=== PATIENT | male | born 1960 | race Caucasian/White ===

== ENCOUNTER 2024-04-04 02:18 | Inpatient (IN) | payer MEDICARE, MEDICAID ==
[2024-04-04] MEDS ORDERED: Guaifenesin DM 100-10/5 ML UDCUP PO PRN (02:41)
[2024-04-04] MEDS ORDERED: Ondansetron PF 4 MG/2 ML Vial IVP PRN (02:41)
[2024-04-04] MEDS ORDERED: Senokot S 8.6-50 MG TAB PO PRN (02:41)
[2024-04-04] MEDS ORDERED: Calcium Carbonate 500 MG ChewTAB PO PRN (02:41)
[2024-04-04] MEDS ORDERED: Ipratropium/Albuterol 3 ML NEB NEB PRN (02:43)
[2024-04-04] MEDS: Ipratropium/Albuterol 3 ML NEB NEB SCH (03:35)
[2024-04-04 03:51] LABS: Actual Bicarbonate (HCO3v) 30.1 mEq/L (22-28); Analyzer IN Cardio CS ER; Base Excess 3.4 mEq/L (-2 - +2); Chloride (VBG) 99 mmol/L (98-106); Critical Notified By: CP.MC; Hematocrit-VBG 42 % (42.0-52.0); Hemoglobin (Hb) 14.3 g/dL (12.6-17.4); Potassium (VBG) 4.19 mmol/L (3.70-5.30); Puncture Site Other Site; RapidComm Collect By LAB; Sodium 137 mmol/L (133-146); pH (venous) 7.366 (7.32-7.43)
[2024-04-04] MEDS: Furosemide 40 MG (4 mL) VIAL SLOW IVP SCH (04:21)
[2024-04-04] MEDS: methylPREDNISolone Sod Succ 40 MG VIAL IVP SCH (04:22)
[2024-04-04 04:29] LABS: Anion Gap 13 mmol/L (10-20); BUN (Urea Nitrogen) 15 mg/dL (8.4-25.7); Calc. Creatinine Clearance 0 mL/min (70-130); Calcium 8.4 mg/dL (7.8-10.44); Carbon Dioxide 31 mmol/L (23-31); Chloride 99 mmol/L (98-107); Estimated GFR 87; Glucose 86 mg/dL (80-115); Potassium 4.2 mmol/L (3.5-5.1); Sodium 139 mmol/L (136-145)
[2024-04-04 05:13] LABS: Thyroid Stimulating Hormone 6.8189 uIU/mL (0.35-4.94)
[2024-04-04] MEDS: diphenhydrAMINE 25 MG CAP PO SCH (06:06)
[2024-04-04] MEDS: Levothyroxine Sodium 112 MCG TAB PO SCH (06:11)
[2024-04-04 06:28] VITALS: BMI 36.6
[2024-04-04 07:11] LABS: Influenza A by NAA Not Detected (NotDetected); Influenza B by NAA Not Detected (NotDetected); RSV by NAA Not Detected (NotDetected); SARS-CoV-2 NAA Rapid Test Not Detected (NotDetected)
[2024-04-04] MEDS: Famotidine 20 MG TAB PO SCH (08:45)
[2024-04-04] MEDS: busPIRone HCl 5 MG TAB PO SCH (08:45)
[2024-04-04] MEDS: Losartan 25 MG TAB PO SCH (08:45)
[2024-04-04] MEDS: cefTRIAXone\\ROCEPHIN 2 GM in Sodium Chloride 0.9% 100 ML IVPB SCH (08:50)
[2024-04-04] MEDS: Enoxaparin 40 MG (0.4 mL) SYRINGE SC SCH (08:52)
[2024-04-04 10:58] LABS: Legionella Urinary Ag Negative (Negative); Strep pneumo Urine Ag NEGATIVE (NEGATIVE)
[2024-04-04] MEDS: Azithromycin 500 MG in Sodium Chloride 0.9% 250 ML 250 ML IVPB SCH (18:35)
[2024-04-04] MEDS: hydrOXYzine 25 MG TAB PO PRN (18:36)
[2024-04-04] MEDS: Rosuvastatin 20 MG TAB PO SCH (20:40)
[2024-04-04] MEDS: Mirtazapine 15 MG TAB PO SCH (20:41)
[2024-04-04] MEDS: Escitalopram Oxalate 10 mg Tablet PO SCH (20:41)
[2024-04-05 13:00] LABS: Free T4 (Free Thyroxine) 0.82 ng/dL (0.70-1.48)
[2024-04-05 14:35] LABS: ANA Symphony (Qualitative) POSITIVE (Negative); ANA Symphony (Quantitative) 4.1 Ratio (< 0.7 Negative); CENP IgG Antibody 1.1 EliAU/mL (<7 Negative); RNP70 IgG Antibody 2.2 EliAU/mL (<7 Negative); SSB/La IgG Antibody 2.6 EliAU/mL (<7 Negative); Smith D IgG Antibody 1.2 EliAU/mL (<7 Negative)
[2024-04-06] MEDS: Levothyroxine Sodium 125 MCG TAB PO SCH (04:59)
[2024-04-06 05:10] LABS: Anion Gap 12 mmol/L (10-20); BUN (Urea Nitrogen) 19 mg/dL (8.4-25.7); Calc. Creatinine Clearance 129 mL/min (70-130); Carbon Dioxide 34 mmol/L (23-31); Chloride 98 mmol/L (98-107); Estimated GFR 96; Glucose 86 mg/dL (80-115); Potassium 4.3 mmol/L (3.5-5.1); Sodium 140 mmol/L (136-145)
[2024-04-06 05:11] LABS: #Basophils 0.02 10x3/uL (0.0-0.2); #Eosinphils 0.03 10x3/uL (0.0-0.5); #Monocytes 0.56 10x3/uL (0.0-1.1); #Neutrophils 5.94 10x3/uL (1.5-8.4); %Basophils 0.2 % (0.0-2.0); %Eosinophils 0.4 % (0.0-6.0); %Lymphocytes 18.8 % (18.0-47.0); %Monocytes 6.9 % (0.0-10.0); %Neutrophils 73.2 % (40.0-75.0); Hemoglobin 13.6 g/dL (13.5-17.5); Mean Corpuscular HGB CONC 33.2 g/dL (32.0-36.0); Mean Corpuscular Hemoglobin 33.7 pg (27.0-33.0); Mean Corpuscular Volume 101.7 fl (81.2-95.1); Mean Platelet Volume 9.1 fl (7.4-10.4); Platelet Count 314 10x3/uL (150-450); RBC Distribution Width 16.7 % (11.5-14.5); Red Blood Cell (RBC) Count 4.03 10x6/uL (4.32-5.72); White Blood Cell (WBC) Count 8.1 10x3/uL (3.5-10.5)
[2024-04-06] MEDS ORDERED: Levothyroxine Sodium 112 MCG TAB PO SCH (06:00)
[2024-04-06] MEDS ORDERED: predniSONE 20 MG TAB PO SCH (08:00)
[2024-04-06] MEDS: Acetaminophen 325 MG TAB PO PRN (20:41)
[2024-04-06 22:14] LABS: Mycoplasma pneumoniae IgG AB 459 U/mL (0-99); Mycoplasma pneumoniae IgM AB Less than 770 U/mL (0-769)
[2024-04-07 03:57] LABS: #Basophils 0.03 10x3/uL (0.0-0.2); #Eosinphils 0.15 10x3/uL (0.0-0.5); #Monocytes 0.57 10x3/uL (0.0-1.1); #Neutrophils 4.16 10x3/uL (1.5-8.4); %Basophils 0.5 % (0.0-2.0); %Eosinophils 2.3 % (0.0-6.0); %Lymphocytes 24.2 % (18.0-47.0); %Monocytes 8.7 % (0.0-10.0); %Neutrophils 63.8 % (40.0-75.0); Hematocrit 41.4 % (38.8-50.0); Hemoglobin 13.7 g/dL (13.5-17.5); Mean Corpuscular HGB CONC 33.1 g/dL (32.0-36.0); Mean Corpuscular Hemoglobin 33.7 pg (27.0-33.0); Mean Corpuscular Volume 101.7 fl (81.2-95.1); Mean Platelet Volume 8.8 fl (7.4-10.4); Platelet Count 304 10x3/uL (150-450); RBC Distribution Width 16.4 % (11.5-14.5); Red Blood Cell (RBC) Count 4.07 10x6/uL (4.32-5.72); White Blood Cell (WBC) Count 6.5 10x3/uL (3.5-10.5)
[2024-04-07 04:11] LABS: Anion Gap 10 mmol/L (10-20); BUN (Urea Nitrogen) 19 mg/dL (8.4-25.7); Calc. Creatinine Clearance 120 mL/min (70-130); Calcium 9.1 mg/dL (7.8-10.44); Carbon Dioxide 35 mmol/L (23-31); Chloride 97 mmol/L (98-107); Estimated GFR 92; Glucose 87 mg/dL (80-115); Potassium 4.4 mmol/L (3.5-5.1); Sodium 138 mmol/L (136-145)
[2024-04-08 03:26] LABS: #Basophils 0.02 10x3/uL (0.0-0.2); #Eosinphils 0.18 10x3/uL (0.0-0.5); #Monocytes 0.62 10x3/uL (0.0-1.1); #Neutrophils 3.53 10x3/uL (1.5-8.4); %Basophils 0.3 % (0.0-2.0); %Lymphocytes 26.3 % (18.0-47.0); %Monocytes 10.4 % (0.0-10.0); %Neutrophils 59.5 % (40.0-75.0); Hematocrit 43.2 % (38.8-50.0); Hemoglobin 14.3 g/dL (13.5-17.5); Mean Corpuscular HGB CONC 33.1 g/dL (32.0-36.0); Mean Corpuscular Hemoglobin 33.2 pg (27.0-33.0); Mean Corpuscular Volume 100.2 fl (81.2-95.1); Mean Platelet Volume 8.7 fl (7.4-10.4); Platelet Count 316 10x3/uL (150-450); RBC Distribution Width 16.3 % (11.5-14.5); Red Blood Cell (RBC) Count 4.31 10x6/uL (4.32-5.72); White Blood Cell (WBC) Count 5.9 10x3/uL (3.5-10.5)
[2024-04-08 03:50] LABS: Anion Gap 12 mmol/L (10-20); BUN (Urea Nitrogen) 17 mg/dL (8.4-25.7); Calc. Creatinine Clearance 121 mL/min (70-130); Carbon Dioxide 32 mmol/L (23-31); Chloride 96 mmol/L (98-107); Estimated GFR 94; Potassium 4.4 mmol/L (3.5-5.1); Sodium 136 mmol/L (136-145)
[2024-04-08 03:51] LABS: Calcium 9.6 mg/dL (7.8-10.44); Glucose 91 mg/dL (80-115)
[2024-04-08 16:26] VITALS: BP 105/70; TEMP 98.2
== END 2024-04-08 16:29 | disposition home health service (06) | DRG 177 ==
LOC: CSHTELE 02:18
PROVIDERS: ADMIT Student in an Organized Health Care Education/Training Program; ATTEND Internal Medicine
DX: J69.0 Pneumonitis due to inhalation of food and vomit (principal); J96.01 Acute respiratory failure with hypoxia; I50.32 Chronic diastolic (congestive) heart failure; R59.0 Localized enlarged lymph nodes; E78.5 Hyperlipidemia, unspecified; F41.9 Anxiety disorder, unspecified; F32.A Depression, unspecified; E03.9 Hypothyroidism, unspecified; D53.9 Nutritional anemia, unspecified; I11.0 Hypertensive heart disease with heart failure; Z90.49 Acquired absence of other specified parts of digestive tract; Z90.89 Acquired absence of other organs; Z98.890 Other specified postprocedural states; Z79.899 Other long term (current) drug therapy
CPT/HCPCS: 0241U; 36415; 74230; 80048; 82607; 82805; 83880; 84145; 84439; 84443; 84481; 85025; 86038; 86140; 86225; 86235; 87449; 87899; 93306; 94640; 94667; 94760; 94762; J0456; J0696; J1650; J1940; J2920; J3490; J7050; J7620